=== PATIENT | female | born 1990 | race Caucasian/White ===

== ENCOUNTER 2018-08-19 16:52 | Emergency (ER) | payer MEDICAID ==
[~2018-08-19] VITALS: Ht 157.5 cm; Wt 56.0 kg
[2018-08-19 17:24] LABS: BASOPHILS # (AUTO) 0.1 X10'3 (0-0.2); BASOPHILS % (AUTO) 0.8 % (0-1); EOSINOPHILS # (AUTO) 0.6 X10'3 (0-0.9); EOSINOPHILS % (AUTO) 6.9 % (0-6); HEMATOCRIT 39.7 % (35.0-45.0); HEMOGLOBIN 13.5 g/dl (12.0-16.0); LYMPHOCYTES % (AUTO) 36.9 % (21-51); MEAN CORPUSCULAR HEMOGLOBIN 30.8 PG (27.0-31.0); MEAN CORPUSCULAR HGB CONC 33.9 g/dL (33.0-36.5); MEAN CORPUSCULAR VOLUME 90.7 FL (78-98); MEAN PLATELET VOLUME 9.8 FL (7.4-10.4); MONOCYTES # (AUTO) 0.4 X10'3 (0-0.9); MONOCYTES % (AUTO) 5.3 % (2-12); NEUTROPHILS % (AUTO) 50.1 % (42-75); PLATELET COUNT 246 X10'3 (140-440); RED BLOOD COUNT 4.38 X10'6 (4.20-5.60)
[2018-08-19 17:25] LABS: CLARITY,URINE CLEAR (Clear); COLOR,URINE YELLOW (Yellow); GLUCOSE, URINE NEGATIVE (Neg); KETONES,URINE NEGATIVE (Neg); LEUKOCYTE ESTERASE ,URINE NEGATIVE (Neg); NITRITES, URINE NEGATIVE (Neg); OCCULT BLOOD,URINE NEGATIVE (Neg); PROTEIN,URINE NEGATIVE (Neg); UROBILINOGEN,URINE 0.2 E.U/dL (0.2-1.0)
[2018-08-19 17:28] LABS: URINE HCG NEGATIVE (NEG)
[2018-08-19 17:30] LABS: UA COLLECTION TYPE CLN CATCH MIDSTREAM
[2018-08-19 17:35] LABS: HCG SERUM QL NEGATIVE
[2018-08-19 17:39] LABS: ALANINE AMINOTRANSFERASE 17 U/L (12-78); ALBUMIN 4.3 G/DL (3.4-5.0); ALBUMIN/GLOBULIN RATIO 1.3 (1.1-1.5); ALKALINE PHOSPHATASE 54 IU/L (46-116); ANION GAP 10 (8-16); ASPARTATE AMINO TRANSFERASE 8 U/L (10-37); BILIRUBIN,TOTAL 0.4 MG/DL (0.1-1.0); BLOOD UREA NITROGEN 17 MG/DL (7-18); BUN/CREATININE RATIO 22.1 (6.6-38.0); CALCIUM 9.4 MG/DL (8.5-10.1); CHLORIDE 104 MMOL/L (99-107); CREATININE 0.77 MG/DL (0.40-0.90); GLUCOSE 111 MG/DL (70-104); LIPASE 72 U/L (73-393); POTASSIUM 3.6 MMOL/L (3.5-5.1); SODIUM 139 MMOL/L (135-145); TOTAL CARBON DIOXIDE 25.5 MMOL/L (24-32); TOTAL PROTEIN 7.7 G/DL (6.4-8.2); eGFR 89 ML/MIN
[2018-08-19] MEDS ORDERED: diphenhydrAMINE 50 mg/ml inj IV ONE (17:40)
[2018-08-19] MEDS ORDERED: normal saline 1000ML IV soln IVB ONE (17:40)
[2018-08-19] MEDS ORDERED: proCHLORperazine 10 MG/2 ml inj IV ONE (17:40)
[2018-08-19] MEDS ORDERED: ketorolac tromethamine 15mg/ml inj. IV ONE (17:40)
[2018-08-19 18:12] VITALS: BP 102/51
[2018-08-19] MEDS ORDERED: ONDA4TAB6 PO (18:38)
[2018-08-19] MEDS ORDERED: CefTRIAXone 250MG inj IM ONE (19:20)
[2018-08-19] MEDS ORDERED: CefTRIAXone 250MG IM Kit w/LIDOcaine IM ONE (19:30)
== END 2018-08-19 20:10 | disposition home or self-care (01) ==
LOC: ER 16:54
DX: R10.31 Right lower quadrant pain (principal); R10.32 Left lower quadrant pain; N89.8 Other specified noninflammatory disorders of vagina; R11.2 Nausea with vomiting, unspecified; R50.9 Fever, unspecified; Z90.49 Acquired absence of other specified parts of digestive tract; Z88.0 Allergy status to penicillin; Z79.899 Other long term (current) drug therapy
CPT/HCPCS: 36415; 80053; 81003; 81025; 83690; 84703; 85025; 85610; 87210; 96361; 96372; 96374; 96375; 99283; J0696; J0780; J1200; J1885; J7030

== ENCOUNTER 2019-09-22 12:53 | Emergency (ER) | payer MEDICAID ==
[~2019-09-22] VITALS: Ht 157.5 cm; Wt 60.0 kg
[~2019-09-22 12:53] MED LIST: ONDA4TAB6 PO
[2019-09-22 13:06] VITALS: BP 137/105
[2019-09-22] MEDS ORDERED: valacyclovir 500mg tablet PO STA (14:30)
[2019-09-22] MEDS ORDERED: predniSONE 20 mg tablet PO ONE (14:30)
[2019-09-22] MEDS ORDERED: PRED20TA PO (14:55)
[2019-09-22] MEDS ORDERED: VALA10002 PO (14:55)
== END 2019-09-22 15:19 | disposition home or self-care (01) ==
LOC: ER 12:54
DX: G51.0 Bell's palsy (principal); R20.0 Anesthesia of skin; Z90.89 Acquired absence of other organs; Z88.0 Allergy status to penicillin; Z79.899 Other long term (current) drug therapy
CPT/HCPCS: 99283; J7512

== ENCOUNTER 2024-08-03 18:07 | Emergency (ER) | payer MEDICAID ==
[~2024-08-03] VITALS: Ht 160 cm; Wt 62.5 kg
[~2024-08-03 18:07] MED LIST changes: +VALA10002 PO
[2024-08-03 18:08] VITALS: BP 132/68; PULSE 90; TEMP 98.2; O2SAT 98
[2024-08-03] MEDS: HYDROcodone/acetaminophen 5mg/325mg tablet PO ONE (19:03)
[2024-08-03 19:05] VITALS: RESP 16
[2024-08-03] MEDS: ketorolac trometh 30MG/ML vial 30 MG/ML VIAL IM ONE (19:05)
[2024-08-03] MEDS ORDERED: HYDR-3965 PO (19:45)
[2024-08-03] MEDS ORDERED: NAPR-56 PO (19:45)
== END 2024-08-03 20:02 | disposition home or self-care (01) ==
LOC: ER 18:08
DX: S42.402A Unspecified fracture of lower end of left humerus, initial encounter for closed fracture (principal); Z88.0 Allergy status to penicillin; Z90.49 Acquired absence of other specified parts of digestive tract; W18.39XA Other fall on same level, initial encounter; Y93.89 Activity, other specified; Y92.89 Other specified places as the place of occurrence of the external cause; Y99.8 Other external cause status
CPT/HCPCS: 29105; 73080; 96372; 99283; J1885; A4565